=== PATIENT | male | born 1960 | race Caucasian/White ===

== ENCOUNTER 2018-04-04 17:29 | Emergency (ER) | payer MEDICAID, OTHER ==
[~2018-04-04] VITALS: Ht 172.7 cm; Wt 83.9 kg
[2018-04-04 17:32] VITALS: BP 135/74
--- NOTE | 2018-04-04 17:40 | NUR ---
BIB SELF C/O RASH ON RIGHT INNER ELBOW, RIGHT ANKLE AND FACE X 4 DAYS. + SWELLING, + REDNESS, + DISCHARGE, + SCABS. PT ALSO STATES HE HAS LEFT SIDE FACE SWELLING SINCE YESTERDAY, PT IS SAT AT 90% AT THIS TIME WITH EVEN AND UNLABORED BREATHING. PT IS A SMOKER. DENIES N/V/D; SKIN IS PINK/WARM/DRY; AAOX4 WITH EVEN AND STEADY GAIT; LUNGS CLEAR BL; HR EVEN AND REGULAR; PT DENIES ANY FEVER, CP, SOB, OR COUGH AT THIS TIME; PATIENT STATES PAIN OF 8/10 AT THIS TIME; VSS; PATIENT POSITIONED FOR COMFORT; HOB ELEVATED; BEDRAILS UP X2; BED DOWN. ER MD MADE AWARE OF PT STATUS.
--- NOTE | 2018-04-04 18:00 | NUR ---
NO NEEDS AT THIS TIME.
--- NOTE | 2018-04-04 18:45 | NUR ---
Patient discharged with v/s stable. Written and verbal after care instructions given and explained. Patient alert, oriented and verbalized understanding of instructions. Ambulatory with steady gait. All questions addressed prior to discharge. ID band removed. Patient advised to follow up with PMD. Rx of BACTRIM, BENADRYL, PREDNISONE, KEFLEX given. Patient educated on indication of medication including possible reaction and side effects. Opportunity to ask questions provided and answered.
[2018-04-04 18:46] VITALS: BP 135/74
== END 2018-04-04 18:45 | disposition home or self-care (01) ==
LOC: MED 17:29
DX: L03.211 Cellulitis of face (principal); R21 Rash and other nonspecific skin eruption; I10 Essential (primary) hypertension; F17.200 Nicotine dependence, unspecified, uncomplicated
CPT/HCPCS: 99283

== ENCOUNTER 2018-08-04 18:57 | Emergency (ER) | payer OTHER ==
[~2018-08-04] VITALS: Ht 175.3 cm; Wt 92.1 kg
--- NOTE | 2018-08-04 19:10 | NUR ---
JOVANY A/W BED,AMBULATORY
[2018-08-04 19:13] VITALS: BP 160/84
--- NOTE | 2018-08-04 19:33 | NUR ---
PT TAKEN TO BED 7.
--- NOTE | 2018-08-04 19:40 | NUR ---
58 Y/O M PRESENTED TO ED WITH C/O R LOWER BACK PAIN AND RASH TO RLE. AAOX4. STARTED X2 DAYS AGO. PER PT, " I NOTICED A BUG BITE TO MY LOWER BACK AND I PICKED AT IT. THEN LATER THE SAME I SAW THE RASH ON MY LEG. I THINK THEY ARE RELATED." 10/10 PAIN, ACHING AND THROBBING, PER PT "IT HURTS TO THE BONE". BUG BITE TO R LOWER BACK, TENDER TO TOUCH. NO DRAINAGE NOTED. RASH TO RLE, ERYTHEMA NOTED. ERMD NOTIFIED. WILL CONTINUE TO MONITOR.
--- NOTE | 2018-08-04 21:16 | NUR ---
Dr. Reynolds evaluating patient at bedside.
--- NOTE | 2018-08-04 21:18 | NUR ---
Kike potter in [facility] - 08/04/18 at [address] Reynolds evaluating patient at bedside.
--- NOTE | 2018-08-04 21:29 | NUR ---
DISCHARGE INSTRUCTIONS GIVEN. 5/10 PAIN AND TOLERABLE. AFEBRILE WITH VSS. RX FOR PREDNISONE, MOTRIN, AND ACYCLOVIR GIVEN. SIDE EFFECTS EXPLAINED. INSTRUCTED TO F/U WITH PCP AND WHEN TO RETURN TO ED. VERBALIZED UNDERSTANDING OF DC INSTRUCTIONS. ALL QUESTIONS ANSWERED.
[2018-08-04 21:33] VITALS: BP 160/84
== END 2018-08-04 21:29 | disposition home or self-care (01) ==
LOC: MED 18:57
DX: B02.9 Zoster without complications (principal); I10 Essential (primary) hypertension; F17.210 Nicotine dependence, cigarettes, uncomplicated
CPT/HCPCS: 99283

== ENCOUNTER 2021-02-23 19:48 | Inpatient (IN) | payer OTHER, SELFPAY ==
[~2021-02-23] VITALS: Ht 172.7 cm; Wt 82.1 kg
[2021-02-23 20:07] VITALS: BP 141/88
--- NOTE | 2021-02-23 20:16 | NUR ---
PT AMBULATED TO LOBBY WITH STEADY GAIT.
--- NOTE | 2021-02-23 20:50 | NUR ---
pt ambulated to bed 07 with steady gait.
--- NOTE | 2021-02-23 21:02 | NUR ---
PATIENT REPORTS SWELLING TO BILATERAL HANDS AND SOME WELTS TO PALMAR SURFACE OF HANDS. DENIES ANY OTHER COMPLAINTS AND DENIES ANY OTHER PAINS.
--- NOTE | 2021-02-23 22:17 | NUR ---
Dr. Modi examining patient.
[2021-02-23] MEDS ORDERED: methylPREDNISolone SS 125 MG/2 ML VIAL IVP ONE (23:00)
[2021-02-23] MEDS ORDERED: cephALEXin 500 MG CAP PO ONE (23:00)
[2021-02-23] MEDS ORDERED: FAMOTIDINE 20 MG/2 ML VIAL IVP ONE (23:00)
[2021-02-23] MEDS ORDERED: KETOROLAC 30 MG/ML VIAL IVP ONE (23:00)
[2021-02-23] MEDS ORDERED: diphenhydrAMINE 50 MG/ML VIAL IVP ONE (23:00)
[2021-02-23 23:23] LABS: BASOPHILS # (AUTO) 0.1 K/uL (0.00-0.22); BASOPHILS % (AUTO) 0.9 % (0.0-2.0); EOSINOPHILS # (AUTO) 0.1 K/uL (0-0.4); EOSINOPHILS % (AUTO) 0.8 % (0.0-4.0); HEMATOCRIT 43.2 % (36-52); HEMOGLOBIN 14.8 g/dL (12.0-18.0); LYMPHOCYTES # (AUTO) 2.6 K/uL (2.0-11.5); MEAN CORPUSCULAR HEMOGLOBIN 31 pg (27-31); MEAN CORPUSCULAR HGB CONC 34 g/dL (33-37); MEAN CORPUSCULAR VOLUME 90.1 fL (80-94); MONOCYTES # (AUTO) 1.7 K/uL (0.8-1.0); MONOCYTES % (AUTO) 10.9 % (1.7-9.3); NEUTROPHILS # (AUTO) 11.4 K/uL (1.8-7.7); NEUTROPHILS % (AUTO) 71.4 % (42.2-75.2); PLATELET COUNT (AUTO) 392 K/uL (140-450); RED BLOOD CELL COUNT(AUTO) 4.79 MIL/uL (4.20-6.10)
[2021-02-23] MEDS ORDERED: NACL 0.9% 2,000 ML IV ONE (23:35)
[2021-02-23 23:38] LABS: ALBUMIN 2.8 g/dL (3.4-5.0); ANION GAP 13.5 (8-16); ASPARTATE AMINOTRANSFERASE 12 U/L (15-37); CARBON DIOXIDE 26.5 mmol/L (21-32); CHLORIDE 100 mmol/L (98-107); CREATININE 0.9 mg/dL (0.6-1.3); GFR ARICAN-AMERICAN 111 mL/min (>90); GLUCOSE 301 mg/dL (74-106); SODIUM SERUM 136 mmol/L (136-145); TOTAL BILIRUBIN 0.3 mg/dL (0.0-1.0); UREA NITROGEN, BLOOD 11 mg/dL (7-18)
[2021-02-23] MEDS ORDERED: cefTRIAXone 1,000 MG VIAL ONE (23:55)
[2021-02-24 00:25] LABS: BARBITURATE, URINE NEGATIVE ng/ml (NEG <=200); BENZODIAZEPINE, URINE POSITIVE ng/mL (NEG <=200); CANNABINOID, URINE NEGATIVE ng/mL (NEG <=50); COCAINE, URINE NEGATIVE ng/mL (NEG <=300); OPIATE, URINE NEGATIVE ng/mL (NEG <=2000); PHENCYCLIDINE SCREEN,URINE NEGATIVE ng/mL (NEG <=25)
--- NOTE | 2021-02-24 00:32 | NUR ---
SOF OBTAINED AT THIS TIME.
[2021-02-24] MEDS: NACL 0.9% 1,000 ML IV SCH ×2 (01:50→15:10)
[2021-02-24] MEDS ORDERED: ONDANSETRON 4 MG/2 ML VIAL IVP PRN (01:50)
[2021-02-24] MEDS ORDERED: MORPHINE SULFATE 2 MG/ML SYR IVP PRN (01:50)
[2021-02-24] MEDS ORDERED: VANCOMYCIN PER PHARMACY MC PRN (01:55)
--- NOTE | 2021-02-24 02:11 | NUR ---
REPORT GIVEN TO AGATHA AT THIS TIME. CLEARED FOR TRANSPORT TO ROOM 125 A
[2021-02-24 02:20] VITALS: BP 140/85
--- NOTE | 2021-02-24 02:20 | NUR ---
PATIENT WAS RECEIVED IN [facility] FROM ER NURSES, A+O X 4, DENIES ANY PAIN, NEGATIVE SOB, STEADY GAIT ABLE TO AMBULATE AND TRANSFER FROM [facility] TO HIS BED INSIDE ROOM 125 A BED, FINISHING UP HIS 2ND BAG OF HYDRATION NSS. ADMISSION IN PROGRESS. PATIENT ADMITTED HE IS SMOKING. I SPEND 5 MINUTES AT THE BEDSIDE DISCUSSING SMOKING CESSATION, PROS AND CONS OF CONTINUING HIS SMOKING HABIT, BENEFITS AND ALTERNATIVE OPTIONS PHARMACEUTICALLY TO BE FREE FROM SMOKING. PATIENT UNDERSTAND AND CONFIRMED HOW HARD HIS MOTHER HAD SUFFERED FROM SMOKING BEFORE SHE . PATIENT STATED THAT HE PERSONALLY HAD TO TAKE CARE OF HIS MOTHER UNTIL SHE . BUT HE ALSO ADMITTED HE IS NOT READY YET TO QUIT FROM SMOKING. WILL CONTINUE TO ENCOURAGE TO QUIT SMOKING PER NURSING CARE PLAN.
--- NOTE | 2021-02-24 02:22 | NUR ---
Patient will be admitted to care of DR MCGREGOR. Admited to TELE. Will go to [facility] 125A. Belongings list completed. Report to HA SNIDER.
--- NOTE | 2021-02-24 03:00 | NUR ---
PATIENT REQUESTED FOR SANDWICH AND ORANGE JUICE, RN SERVED, PATIENT WAS SATISFIED.
--- NOTE | 2021-02-24 04:00 | NUR ---
RN WENT LUNCH BRAKE AROUND 0330 AM, COVERED BY ANOTHER RN AND CHARGE NURSE. WHEN THE RN ASSIGNED CAME BACK THE PATIENT'S IV ACCESS WAS ALREADY OUT WITH MINIMAL BLEEDING WAS OBSERVED. PRESSURE DRESSING WAS APPLIED TO THE IV INSERTION SITE. BLEEDING WAS ARRESTED. NEW PIV WAS INSERTED IN PATIENT'S RIGHT FA, WITH GUNTER 22 GAUGE INFUSING NSS AT 75 NEW ORDER OF VANCOMYCIN 1 GM WAS ADMINISTERED AT 125 ML/HOUR, PATIENT REQUESTED FOR ANOTHER SANDWICH WAS SERVED BY THE ASSIGNED RN.
[2021-02-24] MEDS ORDERED: VANCOMYCIN 1,000 MG VIAL ONE (04:21)
[2021-02-24] MEDS ORDERED: VANCOMYCIN 1GM/DEXT 5% PREMIX 200 ML IV SCH (04:30)
--- NOTE | 2021-02-24 07:25 | NUR ---
PT HAS BEEN ENDORSED BY STRINGED INSTRUMENT TUNER NURSE FOR CONTINUITY OF CARE, POC DISCUSSED. PT IS STABLE IN BED ON ROOM AIR WITH CHEST RISING AND FALLING EVEN AND UNLABORED. PT IS ON TELE MONITOR SHOWING SR. PT SKIN INTACT WITH A RIGHT FA 22G RUNNING NS AT 75. ALL SAFETY MEASURES IN PLACE, CALL LIGHT WITHIN REACH. WILL CONTINUE TO MONITOR.
--- NOTE | 2021-02-24 07:50 | NUR ---
REPORTS WERE GIVEN, TRANSFER OF CARE ENDORSED.
[2021-02-24 08:00] VITALS: BP 148/82
--- NOTE | 2021-02-24 09:08 | NUR ---
PT CALLED NURSING STATION REPORTING IV IS LEAKING. UPON ASSESSMENT, IV WAS PULLED OUT. CATH INTACT. IV FLUIDS STOPPED. PT DENIES PAIN IN HANDS AT THIS TIME. NEW SHEETS PROVIDED. PT AMBULATED TO THE RESTROOM WITH A STEADY GAIT. ALL SAFETY MEASURES IN PLACE, CALL LIGHT WITHIN REACH. WILL CONTINUE TO MONITOR.
--- NOTE | 2021-02-24 09:10 | NUR ---
DC PLANNIN YRS OLD MALE PATIENT WAS ADMITTED FROM HOME WITH A DX OF HAND SWELLING. PATIENT HAS A HX OF HTN. CXR SHOWED NO ACUTE CARDIOPULMONARY DISEASE. RAPID NEGATIVE. ADMINISTERED IVF, IV ABX ROCEPHIN AND VANCOMYCIN. DC PLAN TO GO HOME WHEN STABLE. CM TO FOLLOW
[2021-02-24] MEDS: ENOXAPARIN 40 MG/0.4 ML SYR SUBQ SCH (09:28)
--- NOTE | 2021-02-24 09:37 | NUR ---
CAMRYN MEDICATION ADMINISTERED PER MD ORDER, PT EDUCATION PROVIDED. PT NODDED IN UNDERSTANDING. PT IS STABLE IN BED WITH EDUCATION REPORTER AT BEDSIDE. PT ON ROOM AIR WITH CHEST RISING AND FALLING EVEN AND UNLABORED. ALL SAFETY MEASURES IN PLACE, CALL LIGHT WITHIN REACH. WILL CONTINUE TO MONITOR.
[2021-02-24 12:00] VITALS: BP 142/74
--- NOTE | 2021-02-24 12:25 | NUR ---
PATIENT RESTING IN ABED , CALM AND ASLEEP. NOT IN DISTRESS OR SOB OBSERVED. V/S WNL. WILL CONT. TO MONITOR THE PT.
--- NOTE | 2021-02-24 14:21 | NUR ---
NO IV ACCESS PLACED IN RIGHT UPPER ARM 22G. PT TOLERATED INSERTION. IV PATENT, LABELED AND DRESSING INTACT. PT REPORTS ALL NEEDS MET AT THIS TIME. ALL SAFETY MEASURES IN PLACE, CALL LIGHT WITHIN REACH. WILL CONTINUE TO MONITOR.
--- NOTE | 2021-02-24 15:07 | NUR ---
PT RESTING IN BED WITH NO ACUTE S/S OF DISTRESS, ALL SAFETY MEASURES IN PLACE,CALL LIGHT WITHIN REACH. WILL CONTINUE TO MONITOR.
[2021-02-24] MEDS: VANCOMYCIN 750 MG in DEXTROSE 5% 250 ML IV SCH (15:41)
--- NOTE | 2021-02-24 15:53 | NUR ---
CAMRYN MEDICATION ADMINISTERED PER MD ORDER, PT RESTING IN BED WITH NO ACUTE S/S OF DISTRESS. ALL SAFETY MEASURES IN PLACE. CALL LIGHT WITHIN REACH WILL CONTINUE TO MONITOR.
[2021-02-24 16:00] VITALS: BP 118/68
--- NOTE | 2021-02-24 17:02 | NUR ---
PT IS ASLEEP ON HIS SIDE WITH CHEST RISING AND FALLING EVEN AND UNLABORED. ALL SAFETY MEASURES IN PLACE. CALL LIGHT WITHIN REACH. WILL CONTINUE TO MONITOR.
--- NOTE | 2021-02-24 18:03 | NUR ---
PT IN BED STABLE WITH NO ACUTE S/S PF DISTRESS. ALL SAFETY MEASURES IN PLACE, CALL LIGHT WITHIN REACH. WILL CONTINUE TO MONITOR.
--- NOTE | 2021-02-24 19:00 | NUR ---
PT ENDORSED TO DRILL PRESS OPERATOR NUMERICAL CONTROL NURSE FOR CONTINUITY PT STABLE.
[2021-02-24 20:00] VITALS: BP 121/70
--- NOTE | 2021-02-24 20:00 | NUR ---
RECEIVED BEDSIDE REPORT REGARDING THE PATIENT FROM DAY RN FOR CONTINUITY OF CARE. PATIENT LAYING IN BED WATCHING TV. NOT IN ANY DISTRESS AND NO COMPLAIN AT THIS TIME. IVF INFUSING ORDERED. VSS, AFEBRILE SATING 97% ON RA. ST ON OVEREDGER, HR- 103. DISCUSSED POC WITH THE PATIENT AND VERBALIZED UNDERSTANDING. CALL LIGHT WITHIN REACH. WILL CONTINUE POC AND MONITORING.
--- NOTE | 2021-02-24 22:00 | NUR ---
DUE MEDS GIVEN ORDERED. PATIENT TOLERATED IT WELL. NO ADVERSE DRUG REACTION NOTED. WILL CONTINUE OBSERVATION.
[2021-02-25] VITALS: BP 139/73
[2021-02-25] MEDS: NACL 0.9% 1,000 ML IV SCH ×2 (01:00→15:52)
--- NOTE | 2021-02-25 01:00 | NUR ---
PATIENT CALLED AND C/O BURNING SENSATION AND PAIN ON HIS BILATERAL HANDS AND ASKED FOR PAIN MEDICATION. PRN MORPHINE GIVEN ORDERED. WILL CONTINUE OBSERVATION.
--- NOTE | 2021-02-25 02:52 | NUR ---
PATIENT ASLEEP AT THIS TIME. VISIBLE CHEST RISE AND FALL NOTED. CALL LIGHT WITHIN REACH.
--- NOTE | 2021-02-25 03:10 | NUR ---
PATIENT WOKE UP AND STATED THAT THE PAIN MEDICATION I GAVE HIM FOR PAIN DIDN'T WORK. PAGE THE BODY BUMPER MD ERWIN AND AWAITING FOR MD TO CALL BACK. PATIENT MADE AWARE AND VERBALIZED UNDERSTANDING.
--- NOTE | 2021-02-25 03:39 | NUR ---
DR ERWIN CALLED BACK AND AWARE OF THE PT COMPLAINT. NEW ORDER GIVEN . PATIENT MADE AWARE THAT WE GOT THE ORDER FOR PAIN MEDICINE AND AWAITING FOR PHARMACY TO VERIFY THE ORDER AND WILL GIVE IT AFTER THE MEDICINE IS VERIFIED. PT VERBALIZED UNDERSTANDING.
[2021-02-25 04:00] VITALS: BP 168/93
[2021-02-25] MEDS: VANCOMYCIN 750 MG in DEXTROSE 5% 250 ML IV SCH (04:34)
[2021-02-25] MEDS: MORPHINE SULFATE 2 MG/ML SYR IVP PRN ×3 (04:34→15:52)
--- NOTE | 2021-02-25 06:00 | NUR ---
ENDORSED PT TO HA HICKMAN FOR CONTINUITY OF CARE. PATIENT STABLE AND NOT IN ANY DISTRESS. NO COMPLAIN AT THIS TIME. SIGNING OFF.
[2021-02-25 06:24] LABS: BASOPHILS # (AUTO) 0.1 K/uL (0.00-0.22); BASOPHILS % (AUTO) 0.4 % (0.0-2.0); EOSINOPHILS # (AUTO) 0.1 K/uL (0-0.4); EOSINOPHILS % (AUTO) 0.4 % (0.0-4.0); HEMATOCRIT 39.7 % (36-52); HEMOGLOBIN 13.4 g/dL (12.0-18.0); LYMPHOCYTES # (AUTO) 3.5 K/uL (2.0-11.5); LYMPHOCYTES % (AUTO) 21.3 % (20.5-51.1); MEAN CORPUSCULAR HEMOGLOBIN 30 pg (27-31); MEAN CORPUSCULAR HGB CONC 34 g/dL (33-37); MEAN CORPUSCULAR VOLUME 90.5 fL (80-94); MONOCYTES # (AUTO) 1.4 K/uL (0.8-1.0); MONOCYTES % (AUTO) 8.5 % (1.7-9.3); NEUTROPHILS # (AUTO) 11.5 K/uL (1.8-7.7); NEUTROPHILS % (AUTO) 69.4 % (42.2-75.2); PLATELET COUNT (AUTO) 400 K/uL (140-450); RED BLOOD CELL COUNT(AUTO) 4.39 MIL/uL (4.20-6.10); RED CELL DISTRIBUTION WIDTH 13.3 % (11.6-13.7); WHITE BLOOD COUNT (AUTO) 16.6 K/uL (4.8-10.8)
[2021-02-25 06:26] LABS: ALBUMIN 2.3 g/dL (3.4-5.0); ANION GAP 12.1 (8-16); CARBON DIOXIDE 25.6 mmol/L (21-32); CREATININE 0.8 mg/dL (0.6-1.3); MAGNESIUM 1.9 mg/dL (1.8-2.4); PHOSPHORUS 2.3 mg/dL (2.5-4.9); POTASSIUM 3.7 mmol/L (3.5-5.1); TOTAL BILIRUBIN 0.2 mg/dL (0.0-1.0)
--- NOTE | 2021-02-25 07:27 | NUR ---
RECEIVED REPORT FROM UPHOLSTERY MECHANIC NURSE FOR CONTINUITY OF CARE, POC DISCUSSED. PT IS IN BED WITH CHEST RISING AND FALLING EVEN AND UNLABORED, NO ACUTE S/S OF DISTRESS. PT REPORTS 10/10 PAIN IN HANDS, WILL MEDICATE PER MD ORDER. ALL SAFETY MEASURES IN PLACE, CALL LIGHT WITHIN REACH. WILL CONTINUE TO MONITOR.
[2021-02-25 08:00] VITALS: BP 162/89
[2021-02-25] MEDS ORDERED: LOSARTAN 25 MG TAB PO SCH (09:00)
--- NOTE | 2021-02-25 09:29 | NUR ---
CAMRYN MEDICATION ADMINISTERED PER MD ORDER, PT TOLERATED ADMINISTRATION. PT REPORTING 6/10 PAIN IN BILATERAL HANDS. PT STATES IT IS TINGLING SENSATION. PRN PAIN MEDICATION ADMINISTERED PER MD ORDER. ICE PACKS ALSO PROVIDED. PT TOLERATED ADMINISTRATION. ALLS OTHER SAFETY MEASURES IN PLACE, CALL LIGHT WITHIN REACH. WILL CONTINUE TO MONITOR.
[2021-02-25] MEDS: ENOXAPARIN 40 MG/0.4 ML SYR SUBQ SCH (09:30)
--- NOTE | 2021-02-25 10:29 | NUR ---
PT IS ASLEEP IN BED WITH NO ACUTE S/S OF DISTRESS, CHEST RISING AND FALLING EVEN AND UNLABORED. ALL SAFETY MEASURES IN PLACE, CALL LIGHT WITHIN REACH. WILL CONTINUE TO MONITOR.
[2021-02-25 12:00] VITALS: BP 162/89
--- NOTE | 2021-02-25 13:27 | NUR ---
ROUNDED ON PT, PT IS ASLEEP IN BED WITH CHEST RISING AND FALLING EVEN AND UNLABORED. ALL SAFETY MEASURES IN PLACE, CALL LIGHT WITHIN REACH. WILL CONTINUE TO MONITOR
--- NOTE | 2021-02-25 15:25 | NUR ---
ROUNDED ON PT, PT IS ASLEEP IN BED WITH CHEST RISING AND FALLING EVEN AND UNLABORED. ALL SAFETY MEASURES IN PLACE, CALL LIGHT WITHIN REACH. WILL CONTINUE TO MONITOR.
--- NOTE | 2021-02-25 15:52 | NUR ---
PRN PAIN MEDICATION ADMINISTERED PER MD ORDER, PT TOLERATED ADMINISTRATION. PT IS IV IS PATENT AND INTACT. NEW IV FLUIDS STARTED.
[2021-02-25 16:00] VITALS: BP 135/68
[2021-02-25] MEDS: VANCOMYCIN 1,000 MG in DEXTROSE 5% 250 ML IV SCH (16:02)
--- NOTE | 2021-02-25 16:04 | NUR ---
CAMRYN ABX ADMINISTERED PER MD ORDER, PT TOLERATED ADMINISTRATION. PT IV IS PATENT. ICE BAGS ARE PROVIDED AT PTS REQUEST FOR HANDS. CT CALLED AND STATED THEY WILL BE HERE ROUGHLY 1730. ALL SAFETY MEASURES IN PLACE, CALL LIGHT WITHIN REACH. WILL CONTINUE TO MONITOR.
--- NOTE | 2021-02-25 17:35 | NUR ---
PT TAKEN TO RADIOLOGY IN STABLE CONDITION.
--- NOTE | 2021-02-25 17:54 | NUR ---
PT RETURNED IN STABLE CONDITION. PT RECONNECTED TO IV FLUIDS.
--- NOTE | 2021-02-25 18:25 | NUR ---
PT IS STABLE IN BED. ALL SAFETY MEASURES IN PLACE, CALL LIGHT WITHIN REACH. WILL CONTINUE TO MONITOR.
--- NOTE | 2021-02-25 19:01 | NUR ---
PT ENDORSED TO PAPER PATTERN INSPECTOR NURSE FOR CONTINUITY OF CARE, PT STABLE.
--- NOTE | 2021-02-25 19:05 | NUR ---
RECEIVED BEDSIDE FROM DAY RN FOR CONTINUITY OF CARE. PATIENT RESTING IN BED.AWAKE, ALERT AND ORIENTED. NOT IN ANY DISTRESS AND NO COMPLAIN AT THIS TIME. IVF INFUSING ORDERED.AFEBRILE, ON RA.CALL LIGHT WITHIN REACH. WILL AND TO MONITOR
[2021-02-25 20:00] VITALS: BP 138/71
--- NOTE | 2021-02-25 20:50 | NUR ---
SCHEDULED ANTIBIOTICS GIVEN. PT TOLERATED WELL.NO S/SX OF DISTRESS NOTED. CALL LIGHT WITHIN REACH. WILL CONT TO MONITOR.
--- NOTE | 2021-02-25 23:00 | NUR ---
ROUNDS MADE.PT STABLE. AFEBRILE. NO S/SX OF DISTRESS. BREATHING EQUAL AND UNLABORED. CALL LIGHT WITHIN REACH. WILL CONTINUE TO MONITOR.
[2021-02-26] VITALS: BP 152/96
--- NOTE | 2021-02-26 01:40 | NUR ---
PT ASLEEP. NO S/SX OF DISTRESS. VISIBLE CHEST RISE AND FALL NOTED. CALL LIGHT WITHIN REACH. WILL CONTINUE TO MONITOR.
[2021-02-26 04:00] VITALS: BP 160/92
--- NOTE | 2021-02-26 04:00 | NUR ---
SCHEDULE ANTIBIOTICS GIVEN. PT NO COMPLAINS AT THIS TIME. CALL LIGHT WITHIN REACH. WILL CONTINUE TO MONITOR.
[2021-02-26] MEDS: VANCOMYCIN 1,000 MG in DEXTROSE 5% 250 ML IV SCH ×2 (04:15→16:06)
[2021-02-26 06:09] LABS: ANION GAP 12.8 (8-16); CARBON DIOXIDE 24.9 mmol/L (21-32); CREATININE 0.7 mg/dL (0.6-1.3); POTASSIUM 3.7 mmol/L (3.5-5.1)
--- NOTE | 2021-02-26 06:21 | NUR ---
PT STABLE.NO ACUTE EVENTS THROUGHOUT THE NIGHT.ALL NEEDS ATTENDED.NO OTHER COMPLAINS AT THIS TIME. CALL LIGHT WITHIN REACH. WILL CONTINUE TO MONITOR.WILL ENDORSE TO AM SHIFT NURSE.
[2021-02-26 06:26] LABS: BASOPHILS % (AUTO) 0.3 % (0.0-2.0); EOSINOPHILS # (AUTO) 0.1 K/uL (0-0.4); EOSINOPHILS % (AUTO) 0.5 % (0.0-4.0); HEMATOCRIT 42.1 % (36-52); HEMOGLOBIN 14.4 g/dL (12.0-18.0); LYMPHOCYTES # (AUTO) 2.2 K/uL (2.0-11.5); LYMPHOCYTES % (AUTO) 16.1 % (20.5-51.1); MEAN CORPUSCULAR HEMOGLOBIN 31 pg (27-31); MEAN CORPUSCULAR HGB CONC 34 g/dL (33-37); MEAN CORPUSCULAR VOLUME 89.7 fL (80-94); MONOCYTES # (AUTO) 1.9 K/uL (0.8-1.0); NEUTROPHILS # (AUTO) 9.3 K/uL (1.8-7.7); NEUTROPHILS % (AUTO) 69.1 % (42.2-75.2); PLATELET COUNT (AUTO) 425 K/uL (140-450); RED BLOOD CELL COUNT(AUTO) 4.69 MIL/uL (4.20-6.10); RED CELL DISTRIBUTION WIDTH 12.9 % (11.6-13.7); WHITE BLOOD COUNT (AUTO) 13.5 K/uL (4.8-10.8)
[2021-02-26] MEDS: NACL 0.9% 1,000 ML IV SCH ×2 (06:56→10:00)
--- NOTE | 2021-02-26 07:10 | NUR ---
RECEIVED REPORT FROM SPRING FORMER HAND NURSE FOR CONTINUITY OF CARE. PT IS ASLEEP. CHEST RISE AND FALL IS SYMMETRICAL. ON RA WITH BREATHING UNLABORED. SR ON TELE MONITOR. AMBULATORY INDEPENDENTLY. SKIN IS WARM, DRY, AND INTACT. SWELLING ON BILATERAL HANDS. IV IS IN THE RIGHT HAND 20 GAUGE RUNNING NS AT 75 ML PER HOUR PER ORDER. PT IS STABLE. PLAN OF CARE DISCUSSED.
--- NOTE | 2021-02-26 07:33 | NUR ---
PT ENDORSED TO AM SHIFT NURSE FOR CONTINUITY OF CARE. PT STABLE
[2021-02-26 08:00] VITALS: BP 171/88
--- NOTE | 2021-02-26 09:00 | NUR ---
Assessed patient, alert and oriented x4,answered all question. denied any pain or discomfort. education provided . scheduled medication given and education provided re. medication, verbalized full understanding. Bilat extremities elevated with pillows as MD ordered. Attended all needs ,all safety measures in placed, all light within reach. Will continue to monitor the patient.
[2021-02-26] MEDS: LOSARTAN 50 MG TAB PO SCH (09:05)
[2021-02-26] MEDS: ENOXAPARIN 40 MG/0.4 ML SYR SUBQ SCH (09:07)
--- NOTE | 2021-02-26 10:15 | NUR ---
patient was scheduled for CT chest/Thorex w/w/o iv contrast. consent was signed by patient and MD . PICKED PT. UP FOR ct scan @1015 In stable condition.
--- NOTE | 2021-02-26 10:45 | NUR ---
PATIENT RETURNED TO UNIT AFTER CT SCAN DONE. PATIENT STABLE, V/S STABLE. NOT IN DISTRESS NOTED CONTNUE TO MONITOR THE PATIENT
--- NOTE | 2021-02-26 11:30 | NUR ---
Made round and checked on patient, comfortably resting in a bed, no any distress or SOB observed on room air. Pt. has no c/o pain or discomfort. checked for all safety measures. attended all needs. Call light within reach,cont. monitoring the patient.
[2021-02-26 12:00] VITALS: BP 160/91
--- NOTE | 2021-02-26 12:30 | NUR ---
PATIENT COMFORTABLY SLEEPING IN THE BAD, STABLE. ALL SAFETY MEASURSES IN PLACE.WILL CONTNUE TO MONITOR THE PATIENT.
--- NOTE | 2021-02-26 14:09 | NUR ---
MADE ROUND, CHECK THE PATIENT. STABLE AND COMFORTABLY RESTING. BREATHING EVEN AND LABORED. DENIED ANY PAIN. ALL SAFETY MEASURES IN PLACED. WILL CONTINUE TO MONITOR THE PATIENT.
[2021-02-26 16:00] VITALS: BP 109/82
--- NOTE | 2021-02-26 16:15 | NUR ---
1600 ANTIBIOTIC ADMINISTERED MD ORDERED. PATIENT TOLERATED WELL. EDUCATION PROVIDED VERBALIZED UNDERSTANDING.PATIENT CALM AND RESTING. BREATHING EVEN AND UNLABORED ON ROOM AIR. ALL SAFETY MEASURES IN PLACED. ALL NEEDS ATTENDED. WILL CONTINUE TO MONITOR THE PATIENT.
[2021-02-26] MEDS: ACETAMINOPHEN 325 MG TAB PO PRN (17:17)
--- NOTE | 2021-02-26 17:17 | NUR ---
Made round ,reassessed patient. skin warm to touch. rechecked temperature was 100.5f. cooling measures applied. and administered acetaminophen as PRN order.Provide comfort and . and all safety measures applied. will recheck temprature . and continue to monitor the patient.
--- NOTE | 2021-02-26 18:28 | NUR ---
RECHECKED TEMPERATURE NOW ,WENT DOWN TO 98.4F. PATIENT VERBALIZED FEELING BETTER. NO ACUTE DISTRESS NOTED ALERTAND ORIENTED. SITTING POSITION IN THE BED. ALL SAFETY MEASURES APPLIED. CLOSLY MONITORING THE PATIENT. WILL ENDORSE TO PM SHIFT RN TO CONTINUITY CARE AND FOLLOW UP.
--- NOTE | 2021-02-26 19:12 | NUR ---
ENDORSED PT TO BUTTON GRADER NURSE FOR CONTINUITY OF CARE. PT IS STABLE. PLAN OF CARE DISCUSSED.
--- NOTE | 2021-02-26 19:13 | NUR ---
RECEIVED REPORT FROM DAY SHIFT NURSE FOR CONTINUITY OF CARE. PT IS ASLEEP.ON RA WITH BREATHING EQUAL AND UNLABORED.SWELLING ON BILATERAL HANDS NOTED. IVF INFUSING WELL.PT IS STABLE.ALL PRECAUTIONS IN PLACE. WILL CONTINUE TO MONITOR.
[2021-02-26 20:00] VITALS: BP 122/83
--- NOTE | 2021-02-26 20:10 | NUR ---
SCHEDULED ANTIBIOTIC ADMINISTERED. PATIENT TOLERATED WELL. EDUCATION PROVIDED VERBALIZED UNDERSTANDING.PT RESTING ON BED. ALL SAFETY MEASURES IN PLACED. ALL NEEDS ATTENDED. CALL LIGHT WITHIN REACH.WILL CONTINUE TO MONITOR.
--- NOTE | 2021-02-26 21:45 | NUR ---
PT'S DAUGHTERS CALLED AND ASKED FOR UPDATES ABOUT THEIR FATHER. UPDATED DAUGHTERS WITH CURRENT PLAN OF CARE.
--- NOTE | 2021-02-26 23:30 | NUR ---
PT ASLEEP IN BED. VISIBLE CHEST RISE AND FALL NOTED. ALL PRECAUTIONS IN PLACE.CALL LIGHT WITHIN REACH. WILL CONTINUE TO MONITOR.
[2021-02-27] VITALS: BP 125/80
--- NOTE | 2021-02-27 01:30 | NUR ---
ROUNDS MADE. PT RESTING IN BED. NO ACUTE DISTRESS NOTED. ALL PRECAUTIONS IN PLACE.CALL LIGHT WITHIN REACH. WILL CONTINUE TO MONITOR.
--- NOTE | 2021-02-27 03:27 | NUR ---
PT REQUESTED TO HAND OVER HIS HOUSE BANEGAS TO HIS BROTHER,LANI. THE PT'S BROTHER CAME BY TO THE HOSPITAL LOBBY AND I GAVE THE PT'S HOUSE BANEGAS.
[2021-02-27 04:00] VITALS: BP 164/83
[2021-02-27] MEDS: VANCOMYCIN 1,000 MG in DEXTROSE 5% 250 ML IV SCH ×2 (04:40→16:47)
--- NOTE | 2021-02-27 06:10 | NUR ---
PT COMPLAINED OF 10/10 PAIN ON BOTH HANDS. PRN PAIN MEDICATION GIVEN. WILL CONTINUE TO MONITOR.
[2021-02-27] MEDS: MORPHINE SULFATE 2 MG/ML SYR IVP PRN (06:13)
--- NOTE | 2021-02-27 06:36 | NUR ---
PT STABLE.NO ACUTE EVENTS THROUGHOUT THE NIGHT.ALL NEEDS ATTENDED.NO OTHER COMPLAINS AT THIS TIME. CALL LIGHT WITHIN REACH. ALL SAFETY PRECAUTIONS IN PLACE.WILL CONTINUE TO MONITOR.WILL ENDORSE TO AM SHIFT NURSE.
--- NOTE | 2021-02-27 07:15 | NUR ---
RECEIVED BEDSIDE REPORT FROM LIQUID COMPOUNDER NURSE FOR CONTINUITY OF CARE. PT IS AWAKE AND ALERT. A&OX4. ON RA WITH BREATHING UNLABORED. ON TELE MONITOR, SR. AMBULATORY INDEPENDENTLY. SKIN IS WARM AND DRY. BLISTERS TO THE PALMS OF HANDS BILAT. BILATERAL UPPER EXTREMITY SWELLING, NON PITTING. IV IS PATENT AND INTACT. PT IS STABLE. PLAN OF CARE DISCUSSED.
--- NOTE | 2021-02-27 07:15 | NUR ---
PT ENDORSED TO AM SHIFT NURSE FOR CONTINUITY OF CARE. PT IS STABLE.
[2021-02-27 08:00] VITALS: BP_SYST 129; BP_SYST 130; BP_DIAS 72; BP_DIAS 86
[2021-02-27] MEDS ORDERED: ACETAMINOPHEN 325 MG TAB PO PRN (08:00)
[2021-02-27] MEDS ORDERED: DEXTROSE 50% 50 ML SYR IVP PRN (08:05)
[2021-02-27] MEDS ORDERED: oxyCODONE/APAP 5/325 MG 1 TAB TAB PO PRN (08:35)
[2021-02-27] MEDS: LOSARTAN 50 MG TAB PO SCH (08:52)
[2021-02-27] MEDS: ENOXAPARIN 40 MG/0.4 ML SYR SUBQ SCH (08:52)
[2021-02-27] MEDS: NACL 0.9% 1,000 ML IV SCH ×2 (08:53→22:08)
[2021-02-27 09:12] LABS: BASOPHILS # (AUTO) 0.1 K/uL (0.00-0.22); BASOPHILS % (AUTO) 0.4 % (0.0-2.0); EOSINOPHILS # (AUTO) 0.1 K/uL (0-0.4); EOSINOPHILS % (AUTO) 0.5 % (0.0-4.0); HEMATOCRIT 44.1 % (36-52); HEMOGLOBIN 15.1 g/dL (12.0-18.0); LYMPHOCYTES # (AUTO) 2.9 K/uL (2.0-11.5); LYMPHOCYTES % (AUTO) 16.6 % (20.5-51.1); MEAN CORPUSCULAR HEMOGLOBIN 31 pg (27-31); MEAN CORPUSCULAR HGB CONC 34 g/dL (33-37); MEAN CORPUSCULAR VOLUME 89.6 fL (80-94); MONOCYTES # (AUTO) 2.1 K/uL (0.8-1.0); MONOCYTES % (AUTO) 11.8 % (1.7-9.3); NEUTROPHILS # (AUTO) 12.4 K/uL (1.8-7.7); NEUTROPHILS % (AUTO) 70.7 % (42.2-75.2); PLATELET COUNT (AUTO) 442 K/uL (140-450); RED BLOOD CELL COUNT(AUTO) 4.92 MIL/uL (4.20-6.10); RED CELL DISTRIBUTION WIDTH 13.2 % (11.6-13.7); WHITE BLOOD COUNT (AUTO) 17.6 K/uL (4.8-10.8)
[2021-02-27 09:23] LABS: ANION GAP 12.7 (8-16); CARBON DIOXIDE 25.6 mmol/L (21-32); CREATININE 0.9 mg/dL (0.6-1.3); POTASSIUM 4.3 mmol/L (3.5-5.1)
--- NOTE | 2021-02-27 09:30 | NUR ---
PT IS STABLE. SLEEPING IN SEMI FOWLERS POSITION. CHEST RISE AND FALL SYMMETRICAL. ON RA WITH BREATHING UNLABORED. HANDS ARE ELEVATED ON PILLOWS. WILL CONTINUE TO MONITOR.
--- NOTE | 2021-02-27 09:55 | NUR ---
RECEIVED CALL FROM FRONT LOBBY STATING THAT DIGNA, FRIEND OF PT, IS HERE TO AERODYNAMICS PROFESSOR BANEGAS TO CHECK ON PT'S DOG IN HOUSE. PT STATED THAT HE GAVE THE BANEGAS TO ANOTHER FRIEND LAST NIGHT.
[2021-02-27] MEDS: BLOOD GLUCOSE MONITORING 1 DEV DEV FS SCH ×3 (11:30→21:48)
--- NOTE | 2021-02-27 11:56 | NUR ---
BS READING IS 438. NOTIFIED DR. AGARWAL VIA MESSAGE. WILL WAIT FOR RESPONSE.
--- NOTE | 2021-02-27 12:07 | NUR ---
DR. AGARWAL RESPONDED AND ORDERED LANTUS INSULIN 10 UNITS SUBQ DAILY, FIRST DOSE NOW. ALSO ORDERED 12 UNITS HUMALOG INSULIN SUBQ FOR BS READING OF 438.
[2021-02-27] MEDS ORDERED: INSULIN LISPRO 100 UNITS/ML VIAL SUBQ SCH (12:27)
[2021-02-27] MEDS ORDERED: INSULIN LANTUS 100 UNITS/ML 10 ML VIAL SUBQ SCH (12:28)
--- NOTE | 2021-02-27 14:00 | NUR ---
PT IS SLEEPING. NO RESPIRATORY DISTRESS ON RA. IV FLUIDS ARE INFUSING ORDERED. BED IS IN LOWEST POSITION AND CALL LIGHT WITHIN REACH. PT IS STABLE.
--- NOTE | 2021-02-27 16:44 | NUR ---
WRONG ID BAND NUMBER WAS INPUTED INTO GLUCOMETER. PT'S ACTUAL BS READING WAS 243. 4 UNITS HUMALOG INSULIN WAS GIVEN PER SLIDING SCALE. WILL CONTINUE TO MONITOR BS.
[2021-02-27] MEDS: INSULIN LISPRO SLIDING SCALE 100 UNITS/ML VIAL SUBQ PRN ×2 (16:46→22:00)
--- NOTE | 2021-02-27 17:15 | NUR ---
DAUGHTER, PEG, DROPPED OFF FOOD AT FRONT LOBBY AND FOOD WAS TAKEN TO PT. PT IS SITTING UP IN THE CHAIR EATING DINNER. IV IS PATENT AND INTACT, INFUSING FLUIDS. PT DENIES PAIN. PT STABLE.
--- NOTE | 2021-02-27 19:16 | NUR ---
ENDORSED PT TO COMPUTER PROGRAMMER ANALYST NURSE FOR CONTINUITY OF CARE. PT IS STABLE. PLAN OF CARE DISCUSSED.
[2021-02-27 20:00] VITALS: BP 140/78
[2021-02-27] MEDS: HYDROcodone/APAP 10/325 MG 1 TAB TAB PO PRN (21:14)
[2021-02-28] MEDS ORDERED: VANCOMYCIN 1,000 MG in DEXTROSE 5% 250 ML IV SCH ×2
[2021-02-28 05:03] VITALS: BP 119/80
[2021-02-28] MEDS: ACETAMINOPHEN 325 MG TAB PO PRN (05:12)
[2021-02-28] MEDS: HYDROcodone/APAP 10/325 MG 1 TAB TAB PO PRN ×2 (05:12→12:28)
--- NOTE | 2021-02-28 05:45 | NUR ---
Assumed care last night. A/O x 4. C/O at the time. Pain medication was given at the time. Ice chips were provided as requested. Urinal was emptied. IV fluids replenished. Bedside table cleared. PM medication administered. BG = 382. Covered with 10 units of insulin. Tmax this AM 100.5. Tylenol has been administered 650 mg. Pain happens to be on the rise again. Pain medication has been administered. Will reassess Temp and pain in a hours time. Will continue to monitor.
--- NOTE | 2021-02-28 06:35 | NUR ---
Temp = 99.0, Pain has been resolved. Will continue to monitor.
[2021-02-28] MEDS: BLOOD GLUCOSE MONITORING 1 DEV DEV FS SCH ×4 (06:45→21:00)
[2021-02-28] MEDS: INSULIN LISPRO SLIDING SCALE 100 UNITS/ML VIAL SUBQ PRN ×4 (06:49→22:11)
--- NOTE | 2021-02-28 07:30 | NUR ---
RECEIVED PT AAOX4. NO SOB NOTED. NO C/O PAIN AT THIS TIME. INSTRUCTED PT TO CALL FOR ASSISTANCE, CALL LIGHT WITHIN REACH, VERBALIZED UNDERSTANDING.
--- NOTE | 2021-02-28 07:51 | NUR ---
Care has been endorsed to Twila BONNER.
[2021-02-28 08:00] VITALS: BP 108/60
[2021-02-28] MEDS ORDERED: INSULIN LANTUS 100 UNITS/ML 10 ML VIAL SUBQ SCH (09:00)
[2021-02-28] MEDS: LOSARTAN 50 MG TAB PO SCH (09:45)
[2021-02-28] MEDS: ENOXAPARIN 40 MG/0.4 ML SYR SUBQ SCH (09:47)
--- NOTE | 2021-02-28 11:00 | NUR ---
DC PLANNING PATIENT IS A 60 YEAR OLD MALE ADMITTED ON THE [facility]/ED ON 02/24/2021 DUE TO HYPERTENSION, HYPERGLYCEMIA, AMPHETAMINE ABUSE, TABACO ABUSE WHO PRESENTED IN THE EMERGENCY ROOM WITH A BILATERAL HAND SWELLING AND REDNESS. LINA AND SUPERVISOR TRAVEL INFORMATION CENTER MEET WITH PATIENT AT BEDSIDE TO DISCUSS AND GATHER HIS COLLATERAL INFORMATION. PATIENT REPORTED LIVING AT AN OFFICE THAT HE HAS COUPLE BLOCKS AWAY FROM THE [facility]. PATIENT DISCLOSED DURING THE VISIT WITH THESE SALES ACCOUNT REPRESENTATIVE THAT HE DID NOT HAVE ADVANCE DIRECTIVES AND WANTED THE INF. PACKET PROVIDED BY LINA. PATIENT STATED THAT HIS EMERGENCY CONTACTS ARE HIS SON LUIS ENRIQUE KNIGHT AND DAUGHTER FLORINA KNIGHT . PER PATIENT HE DO NOT HAVE ANY ISSUES GETTING OR TAKING HIS MEDICATIONS FROM [facility] [place] [facility]. NEAR HIS OFFICE. PATIENT STATED NOT HAVING OR NEEDING DME AT HOME AND BEEN ACTIVE AND INDEPENDENT TO AMBULATE. PATIENT REPORTED NOT HAVING A PCP AT THIS TIME AND REPORTED NEEDING ONE TO FOLLOW UP WITH AN APPOINTMENT AFTER HIS DC/FROM [facility]. LINA INFORMED PATIENT THAT SHE WILL BE SCHEDULING AN APPOINTMENT FOR HIM WHEN HE IS READY FOR HIS DC. PATIENT AGREED TO GO AND REPORTED THAT HIS ADULT KIDS WILL POSSIBLY HELP HIM WITH TRANSPORTATION BACK TO THE OFFICE HE IS STAYING AT OR HE WILL BE WALKING TO THE OFFICE WHERE HE IS BEEN STAYING NEAR THE [facility]. LINA WILL FOLLOW UP NEEDED.
--- NOTE | 2021-02-28 12:00 | NUR ---
PT RESTING. NO SOB NOTED. NO SIGNS OF PAIN. ENDORSED TO DIANE BONNER FOR CONTINUITY OF CARE.
--- NOTE | 2021-02-28 12:10 | NUR ---
RECEIVED REPORT FROM DELON PT IS SEEPING ON ROOM AIR IV INTACT WITH NS AT 75 MLS/HR, SKIN INTACT WITH LEFT HAND SWELLING. PT COMPLAIN OF PAIN.SAFETY MEASURES IN PLACE AND CALL LIGHT WITHIN REACH. WILL CONTINUE TO MONITOR.
--- NOTE | 2021-02-28 12:25 | NUR ---
BLOOD SUGAR 235 MG/DL INSULIN COVERAGE GIVEN.AND PT COMPLAINS OF PAIN ON THE LEFT HAND 6/10 PAIN MEDICATION GIVEN,
[2021-02-28] MEDS: NACL 0.9% 1,000 ML IV SCH (12:26)
--- NOTE | 2021-02-28 15:23 | NUR ---
MESSAGE DR CHIN REGARDING PT CT OF UPPER EXTREMITIES WITH CONTRAST, SAID NOT TO DO CT UPPER EXTREMITY WITH CONTRAST. MILITARY PAY CLERK AWARE.
[2021-02-28 16:00] VITALS: BP 143/92
[2021-02-28 16:41] LABS: BASOPHILS # (AUTO) 0.2 K/uL (0.00-0.22); BASOPHILS % (AUTO) 1.2 % (0.0-2.0); EOSINOPHILS # (AUTO) 0.1 K/uL (0-0.4); EOSINOPHILS % (AUTO) 0.8 % (0.0-4.0); HEMATOCRIT 39.6 % (36-52); HEMOGLOBIN 13.4 g/dL (12.0-18.0); LYMPHOCYTES # (AUTO) 2.9 K/uL (2.0-11.5); LYMPHOCYTES % (AUTO) 18.7 % (20.5-51.1); MEAN CORPUSCULAR HEMOGLOBIN 30 pg (27-31); MEAN CORPUSCULAR HGB CONC 34 g/dL (33-37); MONOCYTES # (AUTO) 1.9 K/uL (0.8-1.0); MONOCYTES % (AUTO) 12.3 % (1.7-9.3); NEUTROPHILS # (AUTO) 10.5 K/uL (1.8-7.7); PLATELET COUNT (AUTO) 415 K/uL (140-450); RED BLOOD CELL COUNT(AUTO) 4.41 MIL/uL (4.20-6.10); RED CELL DISTRIBUTION WIDTH 13.4 % (11.6-13.7); WHITE BLOOD COUNT (AUTO) 15.6 K/uL (4.8-10.8)
[2021-02-28 16:56] LABS: ALBUMIN 2.3 g/dL (3.4-5.0); ANION GAP 12.5 (8-16); CARBON DIOXIDE 25.6 mmol/L (21-32); POTASSIUM 4.1 mmol/L (3.5-5.1); TOTAL BILIRUBIN 0.3 mg/dL (0.0-1.0)
--- NOTE | 2021-02-28 19:32 | NUR ---
ENDORSED TO NIGHT NURSE FOR CONTINUITY OF CARE. PT IS STABLE.
[2021-02-28 20:00] VITALS: BP 118/62
[2021-02-28] MEDS: NAPROXEN 500 MG TAB PO SCH (21:55)
[2021-03-01] MEDS: HYDROcodone/APAP 10/325 MG 1 TAB TAB PO PRN ×2 (00:55→09:01)
--- NOTE | 2021-03-01 01:10 | NUR ---
the pateint was admitted fo hand swelling. he is alert oriented x4.his bs 244 . insulin was admisntered . sce meds are admisntered . norco was given for pain managment . the patient vitals are stable no sob or ledy. comfort and safety measures are provided.
[2021-03-01 04:00] VITALS: BP 130/88
[2021-03-01 06:11] LABS: ALBUMIN 2.2 g/dL (3.4-5.0); ANION GAP 12.1 (8-16); BASOPHILS % (AUTO) 0.3 % (0.0-2.0); CARBON DIOXIDE 26.7 mmol/L (21-32); CREATININE 0.9 mg/dL (0.6-1.3); EOSINOPHILS # (AUTO) 0.1 K/uL (0-0.4); EOSINOPHILS % (AUTO) 0.9 % (0.0-4.0); HEMATOCRIT 37.7 % (36-52); HEMOGLOBIN 12.8 g/dL (12.0-18.0); LYMPHOCYTES # (AUTO) 2.6 K/uL (2.0-11.5); LYMPHOCYTES % (AUTO) 18.8 % (20.5-51.1); MEAN CORPUSCULAR HEMOGLOBIN 31 pg (27-31); MEAN CORPUSCULAR HGB CONC 34 g/dL (33-37); MEAN CORPUSCULAR VOLUME 90.3 fL (80-94); MONOCYTES # (AUTO) 1.8 K/uL (0.8-1.0); MONOCYTES % (AUTO) 12.9 % (1.7-9.3); NEUTROPHILS # (AUTO) 9.1 K/uL (1.8-7.7); NEUTROPHILS % (AUTO) 67.1 % (42.2-75.2); PLATELET COUNT (AUTO) 392 K/uL (140-450); POTASSIUM 3.8 mmol/L (3.5-5.1); RED BLOOD CELL COUNT(AUTO) 4.17 MIL/uL (4.20-6.10); RED CELL DISTRIBUTION WIDTH 13.3 % (11.6-13.7); TOTAL BILIRUBIN 0.1 mg/dL (0.0-1.0); WHITE BLOOD COUNT (AUTO) 13.6 K/uL (4.8-10.8)
[2021-03-01] MEDS: BLOOD GLUCOSE MONITORING 1 DEV DEV FS SCH ×2 (06:41→11:30)
[2021-03-01] MEDS: INSULIN LISPRO SLIDING SCALE 100 UNITS/ML VIAL SUBQ PRN ×2 (06:42→12:34)
--- NOTE | 2021-03-01 07:30 | NUR ---
RECEIVED PT AAOX4. NO SOB NOTED. NO C/O PAIN AT THIS TIME. BILATERAL UPPER EXTREMITIES ELEVATED WITH PILLOWS. INSTRUCTED PT TO CALL FOR ASSISTANCE, CALL LIGHT WITHIN REACH, VERBALIZED UNDERSTANDING.
[2021-03-01 08:00] VITALS: BP 135/76
[2021-03-01] MEDS: LOSARTAN 50 MG TAB PO SCH (09:00)
[2021-03-01] MEDS ORDERED: INSULIN LANTUS 100 UNITS/ML 10 ML VIAL SUBQ SCH (09:00)
[2021-03-01] MEDS: NAPROXEN 500 MG TAB PO SCH (09:01)
[2021-03-01] MEDS: ENOXAPARIN 40 MG/0.4 ML SYR SUBQ SCH (09:04)
--- NOTE | 2021-03-01 09:50 | NUR ---
SPOKE WITH PT'S DAUGHTER PEG ON THE PHONE REGARDING PT'S D/C PLANNING TO GO HOME TODAY, STATED SHE WILL SHIPPING HAND PT AFTER 5 PM.
[2021-03-01] MEDS ORDERED: LOSA50TA1 PO (13:53)
[2021-03-01] MEDS ORDERED: NAPR-1717 PO (13:53)
[2021-03-01] MEDS ORDERED: ALOG1TAB8 PO (13:53)
[2021-03-01] MEDS ORDERED: ACET-9525 PO (13:56)
[2021-03-01] MEDS ORDERED: INSU100I7 SQ (13:57)
--- NOTE | 2021-03-01 14:05 | NUR ---
DR. CHIN ON ROUNDS. PT IS READY TO GO HOME.
--- NOTE | 2021-03-01 14:20 | NUR ---
DISCHARGE INSTRUCTIONS AND PAIN PRESCRIPTIONS GIVEN TO PT WHICH VERBALIZED FULL UNDERSTANDING AND THE NEED TO FOLLOW UP WITH HIS OWN PCP WITHIN 7 DAYS. PT IS ALSO AWARE THAT HIS E-SCRIPT IS SENT TO HIS PREFERRED PHARMACY. ARM BANDS A IV REMOVED, CANNULA TIP INTACT.
--- NOTE | 2021-03-01 14:30 | NUR ---
ESCORTED PT TO THE FRONT LOBBY IN STABLE CONDITION, AMBULATORY WITH STEADY GAIT. NO SOB NOTED. NO COMPLAINTS MADE. PT IS D/C HOME TO SELF. PT STATED HE LIV[facility]OSS [facility].
== END 2021-03-01 14:30 | disposition home or self-care (01) | DRG 420 ==
LOC: MED 19:48 → MTU 02-24 01:52 → MMU 02-24 02:08 → OBSVTOIN 02-24 09:21
PROVIDERS: ADMIT Hospitalist; ATTEND Hospitalist
DX: E11.65 Type 2 diabetes mellitus with hyperglycemia (principal); E11.00 Type 2 diabetes mellitus with hyperosmolarity without nonketotic hyperglycemic-hyperosmolar coma (NKHHC); E44.1 Mild protein-calorie malnutrition; E78.00 Pure hypercholesterolemia, unspecified; E78.5 Hyperlipidemia, unspecified; Z20.822 Contact with and (suspected) exposure to COVID-19; I44.0 Atrioventricular block, first degree; M79.89 Other specified soft tissue disorders; F15.10 Other stimulant abuse, uncomplicated; I10 Essential (primary) hypertension; F17.210 Nicotine dependence, cigarettes, uncomplicated; Z88.5 Allergy status to narcotic agent
CPT/HCPCS: 96365; 96366; 96375; 99291; G0378; 36415; 71045; 71270; 73130; 73200; 80048; 80053; 80202; 80305; 82550; 82728; 82948; 83036; 83605; 83735; 83880; 84100; 84443; 84484; 84550; 85025; 85651; 86038; 86140; 87040; 87081; 93005; 93970; 97163-GP; G0482; J0696; J1200; J1650; J1815; J1885; J2270; J2930; J3370; J3490; J7060; Q0092; Q9967

== ENCOUNTER 2023-05-16 19:40 | Emergency (ER) | payer OTHER ==
[~2023-05-16] VITALS: Ht 172.7 cm; Wt 86.2 kg
[~2023-05-16 19:40] MED LIST: ACET-9525 PO; ALOG1TAB8 PO; INSU100I7 SQ; LOSA-270 PO; NAPR-1717 PO
[2023-05-16 19:50] VITALS: BP 143/77; PULSE 100; RESP 16; TEMP 98.1; O2SAT 96
[2023-05-16] MEDS ORDERED: NACL 0.9% 1,000 ML IV ONE ×2 (20:05→20:10)
[2023-05-16 20:24] LABS: BASOPHILS # (AUTO) 0.1 K/uL (0.00-0.22); BASOPHILS % (AUTO) 0.6 % (0.0-2.0); EOSINOPHILS # (AUTO) 0.1 K/uL (0-0.4); EOSINOPHILS % (AUTO) 0.9 % (0.0-4.0); HEMATOCRIT 45.9 % (36-52); HEMOGLOBIN 15.5 g/dL (12.0-18.0); LYMPHOCYTES % (AUTO) 16.4 % (20.5-51.1); MEAN CORPUSCULAR HEMOGLOBIN 32 pg (27-31); MEAN CORPUSCULAR HGB CONC 34 g/dL (33-37); MEAN CORPUSCULAR VOLUME 93.7 fL (80-94); MONOCYTES # (AUTO) 0.9 K/uL (0.8-1.0); MONOCYTES % (AUTO) 7.7 % (1.7-9.3); NEUTROPHILS % (AUTO) 74.4 % (42.2-75.2); PLATELET COUNT (AUTO) 314 K/uL (140-450); RED CELL DISTRIBUTION WIDTH 13.7 % (11.6-13.7); WHITE BLOOD COUNT (AUTO) 12.1 K/uL (4.8-10.8)
[2023-05-16 20:38] LABS: ALBUMIN 3.5 g/dL (3.4-5.0); ANION GAP 15.8 (8-16); CALCIUM 9.2 mg/dL (8.5-10.1); CARBON DIOXIDE 25.3 mmol/L (21-32); CREATININE 1.3 mg/dL (0.6-1.3); POTASSIUM 4.1 mmol/L (3.5-5.1); TOTAL BILIRUBIN 0.2 mg/dL (0.0-1.0); TOTAL PROTEIN, SERUM 7.7 g/dL (6.4-8.2)
[2023-05-16 20:58] VITALS: BP 148/75; PULSE 70; RESP 16; TEMP 98.2; O2SAT 99
== END 2023-05-16 20:58 | disposition home or self-care (01) ==
LOC: MED 19:40
DX: Z02.89 Encounter for other administrative examinations (principal); E11.65 Type 2 diabetes mellitus with hyperglycemia; I10 Essential (primary) hypertension; Z79.899 Other long term (current) drug therapy; Z79.1 Long term (current) use of non-steroidal anti-inflammatories (NSAID); Z88.5 Allergy status to narcotic agent
CPT/HCPCS: 36415; 80053; 85025; 96360; 99283; J7030